=== PATIENT | male | born 1985 | race Caucasian/White ===

== ENCOUNTER → 2017-01-23 | Outpatient (CLI) | payer OTHER ==
[2017-01-23 12:42] LABS: HEMATOCRIT 46.9 % (42-52); MEAN CELL VOLUME 87.7 fL (80-100); MEAN CORPUSCULAR HEMOGLOBIN 28.8 pg (25-34); MEAN CORPUSCULAR HGB CONC 32.8 g/dl (32-36); MEAN PLATELET VOLUME 10.5 fL (7.4-10.4); PLATELET COUNT 258 K/uL (130-400); RED BLOOD COUNT 5.35 M/uL (4.7-6.1); WHITE BLOOD COUNT 6.36 K/uL (4.8-10.8)
[2017-01-23 13:26] LABS: BLOOD UREA NITROGEN 20 mg/dl (7-18); CALCIUM 8.3 mg/dl (8.5-10.1); CARBON DIOXIDE 28 mmol/L (21-32); CHLORIDE 108 mmol/L (98-107); GLUCOSE 82 mg/dl (70-99); HDL CHOLESTEROL 29 mg/dl; POTASSIUM 4.4 mmol/L (3.5-5.1); SODIUM 142 mmol/L (136-145)
[2017-01-23 13:37] LABS: ALB/GLOB RATIO 1.3 (0.9-2); ALKALINE PHOSPHATASE 59 U/L (45-117); ALT/SGPT 27 U/L (12-78); AST/SGOT 19 U/L (15-37); CHOLESTEROL 192 mg/dl (0-200); CHOLESTEROL/HDL RATIO 6.6; LDL CHOLESTEROL CALCULATED 140 mg/dl; TRIGLYCERIDES 114 mg/dl (0-150); VERY LOW DENSITY LIPOPROT CALC 23 mg/dl
== END | disposition home or self-care (01) ==
LOC: C.LAB 10:02
PROVIDERS: ATTEND Internal Medicine
DX: Z00.00 Encounter for general adult medical examination without abnormal findings (principal); E03.9 Hypothyroidism, unspecified

== ENCOUNTER → 2017-08-03 | Outpatient (CLI) | payer OTHER | END | disposition home or self-care (01) | LOC: C.LAB1850 10:58 | PROVIDERS: ATTEND Internal Medicine | DX: E83.51 Hypocalcemia (principal) ==

== ENCOUNTER → 2017-12-10 | Outpatient (CLI) | payer OTHER | END | disposition home or self-care (01) | LOC: C.LAB1850 14:04 | PROVIDERS: ATTEND Internal Medicine | DX: Z00.00 Encounter for general adult medical examination without abnormal findings (principal) ==